=== PATIENT | female | born 1990 | race Hispanic/Latino ===

== ENCOUNTER 2019-12-29 | Emergency (ER) | payer OTHER ==
[2019-12-29] MEDS ORDERED: TRAMADOL HCL50 MG PO (12:18)
[2019-12-29] MEDS ORDERED: MOTRIN800 MG PO (12:18)
== END 2019-12-29 12:51 | disposition home or self-care (01) | DRG 563 ==
PROC: 2W3JX1Z Immobilization of Right Finger using Splint (ICD-10-PCS; principal; 2019-12-29)
DX: S62.622A Displaced fracture of middle phalanx of right middle finger, initial encounter for closed fracture (principal); W17.89XA Other fall from one level to another, initial encounter; Y92.833 Campsite as the place of occurrence of the external cause